=== PATIENT | female | born 1990 | race Caucasian/White ===

== ENCOUNTER 2023-06-09 09:42 | Inpatient (IN) | payer OTHER ==
[2023-06-09] MEDS: ELECTROLYTE-148 SOLN 1,000 ML IV SCH (10:00)
[2023-06-09 10:34] LABS: BASO % 0.7 % (0-2.0); EOS % 0.2 % (0-4.5); HEMATOCRIT 33.8 % (32.4-45.2); HEMOGLOBIN 11.3 GM/dL (10.7-15.3); LYMPH % 29.2 % (8-40); MCH 28.3 pg (25.7-33.7); MCHC 33.4 g/dl (32.0-36.0); MEAN CELL VOLUME 84.6 fl (80-96); MEAN PLT VOLUME 8.6 fl (7.5-11.1); MONO % 6.5 % (3.8-10.2); NEUT % 63.4 % (42.8-82.8); PLATELET COUNT 275 10^3/uL (134-434); RDW 13.8 % (11.6-15.6); WHITE BLOOD COUNT 8.2 K/mm3 (4.0-10.0)
[2023-06-09] MEDS ORDERED: BUTORPHANOL TARTRATE 2 MG/ML VIAL ONE (10:36)
[2023-06-09] MEDS ORDERED: PROMETHAZINE HCL 25 MG/1 ML VIAL ONE (10:36)
[2023-06-09 10:49] LABS: INR 1.06 (0.83-1.09); PROTHROMBIN TIME (PATIENT) 12.3 SEC (9.7-13.0)
[2023-06-09 10:52] LABS: ACTIVATED PTT 22.4 SECONDS (25.2-36.5)
[2023-06-09 10:54] LABS: POTASSIUM 3.7 mmol/L (3.5-5.1)
[2023-06-09 10:56] LABS: BLOOD UREA NITROGEN 10.4 mg/dL (7-18); CALCIUM 9.2 mg/dL (8.5-10.1)
[2023-06-09 10:59] LABS: CREATININE 0.7 mg/dL (0.55-1.3)
[2023-06-09] MEDS ORDERED: OXYTOCIN 20 UNITS in 0.9% NS 20 UNIT/1,000 ML INFUS.BAG IV ONE ×2 (11:15→14:04)
[2023-06-09] MEDS: OXYTOCIN 20 UNITS in 0.9% NS 20 UNIT/1,000 ML INFUS.BAG IV SCH (11:40)
[2023-06-09 11:51] LABS: HIV INTERPRETATION NEGATIVE (NEGATIVE)
[2023-06-09 12:09] LABS: CORD BASE EXCESS -2.9 mmol/L (0-2); CORD PCO2 44.1 mmHg (30-78); CORD pH 7.335 (7.14-7.44)
[2023-06-09 12:12] LABS: CORD BASE EXCESS -4.7 mmol/L (0-2); CORD PCO2 52.3 mmHg (30-78); CORD pH 7.262 (7.14-7.44)
[2023-06-09] MEDS ORDERED: oxyCODONE HCL 5 MG TABLET PO PRN (12:13)
[2023-06-09] MEDS ORDERED: WITCH HAZEL 50% (TUCKS) 40 PAD/JAR PAD TP PRN (12:13)
[2023-06-09] MEDS ORDERED: BENZOCAINE 20% 57 GM BOTTLE TP PRN (12:13)
[2023-06-09] MEDS ORDERED: BISACODYL 10 MG SUPP.RECT RC PRN (12:13)
[2023-06-09] MEDS ORDERED: BENZOCAINE 28 GM HEMORRHOIDAL OINTMENT TP PRN (12:13)
[2023-06-09] MEDS ORDERED: METHYLERGONOVINE MALEATE 0.2 MG/1 ML AMP IM PRN (12:13)
[2023-06-09 12:52] VITALS: BMI 32.8
[2023-06-09] MEDS ORDERED: IBUPROFEN 600 MG TABLET (FP) PO ONE (13:59)
[2023-06-09] MEDS: IBUPROFEN 600 MG TABLET (FP) PO PRN (14:00)
[2023-06-09] MEDS: ACETAMINOPHEN 325 MG TABLET (FP) PO PRN (19:36)
[2023-06-10 07:48] LABS: BASO % 0.4 % (0-2.0); EOS % 0.3 % (0-4.5); HEMATOCRIT 27.4 % (32.4-45.2); HEMOGLOBIN 9.1 GM/dL (10.7-15.3); LYMPH % 22.4 % (8-40); MCH 28.3 pg (25.7-33.7); MCHC 33.3 g/dl (32.0-36.0); MEAN CELL VOLUME 84.9 fl (80-96); MEAN PLT VOLUME 8.9 fl (7.5-11.1); NEUT % 71.9 % (42.8-82.8); PLATELET COUNT 230 10^3/uL (134-434); RBC 3.23 M/mm3 (3.60-5.2); RDW 13.7 % (11.6-15.6); WHITE BLOOD COUNT 11.8 K/mm3 (4.0-10.0)
[2023-06-10] MEDS: PRENATAL VITAMINS W/ FOLIC ACID TABLET (FP) PO SCH (09:35)
[2023-06-10] MEDS: SENNOSIDES/DOCUSATE COMBO (SENNA PLUS) TABLET (UD) PO PRN (22:15)
[2023-06-11 09:48] VITALS: BP 113/70; PULSE 82; RESP 20; TEMP 98.5
== END 2023-06-11 15:15 | disposition home or self-care (01) | DRG 560 ==
LOC: JLDR 09:42 → J3W 14:09
PROVIDERS: ADMIT Obstetrics & Gynecology; ATTEND Obstetrics & Gynecology
PROC: 10E0XZZ Delivery of Products of Conception, External Approach (ICD-10-PCS; principal; 2023-06-10)
DX: O80 Encounter for full-term uncomplicated delivery (principal); Z3A.38 38 weeks gestation of pregnancy; Z37.0 Single live birth
CPT/HCPCS: 36415; 36600; 80048; 82803; 85025; 85610; 85730; 86780; 86850; 86900; 86901; 87389